=== PATIENT | male | born 1990 | race Caucasian/White ===

== ENCOUNTER → 2017-03-07 | Outpatient (CLI) | payer OTHER ==
[~2017-03-07] MED LIST: ISOVUE-370 76% 100ML VIAL (Q9967) As Ordered ONE
--- NOTE | 2017-03-08 02:33 | REP ---
Clinical: Lower abdominal and testicular/scrotal pain. Technique: Axial contrast enhanced images from the lung bases to the pubic symphysis using 100 ml Isovue 370 intravenous contrast material with precontrast and delayed images of the abdomen as well as coronal and sagittal re-formations. Comparison: None. Findings: Lung bases are clear. Visualized heart and pericardium normal. Liver, spleen, pancreas, bilateral adrenal glands and kidneys are normal. Cholelithiasis is suggested without evidence for acute cholecystitis. The enteric system including stomach, small, and large bowel is without obstruction or acute inflammatory process. Pelvis demonstrates normal bladder and age-appropriate prostate/seminal vesicles. No ascites. No free air. No adenopathy. No obvious solitary mass lesion. Surrounding musculoskeletal structures are intact. Impression: Cholelithiasis suggested. Otherwise normal pre and postcontrast CT of the abdomen and pelvis. Signed by Jared Coffey MD 03/07/2017 11:24 P
--- NOTE | 2017-03-08 03:06 | REP ---
Clinical: Testicular lower abdominal pain. Technique: Cantrell scale and color Doppler evaluation using linear and curved array transducer with color Doppler evaluation. Findings: The testicles and epididymi are relatively normal in contour, size, echogenicity, vascularity and overall appearance. There is no evidence for intratesticular mass lesion, infectious/inflammatory process, with torsion. No obvious hydroceles identified. Early left-sided varicoceles cannot be excluded currently measuring up to approximately 2.5 mm diameter. Right testicle measures 4.2 x 2.3 x 3.1 cm. Left testicle measures 4.2 x 2.1 x 2.9 cm. Impression: Essentially normal scrotal ultrasound. Possible early left varicoceles. Signed by Jared Coffey MD 03/07/2017 11:58 P
== END ==
LOC: M RAD 17:58
PROVIDERS: ATTEND Nurse Practitioner Women's Health
DX: N50.819 Testicular pain, unspecified (principal); R10.9 Unspecified abdominal pain
CPT/HCPCS: 74178; 76870; 93976; Q9967

== ENCOUNTER → 2017-05-10 | Outpatient (CLI) | payer OTHER | LOC: M RAD 07:08 | DX: R93.3 Abnormal findings on diagnostic imaging of other parts of digestive tract (principal) ==

== ENCOUNTER → 2017-05-13 | Outpatient (CLI) | payer OTHER | LOC: M RAD 06:58 | DX: R93.3 Abnormal findings on diagnostic imaging of other parts of digestive tract (principal) ==

== ENCOUNTER → 2017-05-18 | Outpatient (CLI) | payer OTHER ==
[~2017-05-18] MED LIST changes: -ISOVUE-370 76% 100ML VIAL (Q9967) As Ordered ONE; +METHACHOLINE KIT (J7674) INH
== END ==
LOC: M CARPUL 12:29
DX: R06.00 Dyspnea, unspecified (principal)
CPT/HCPCS: J7674